=== PATIENT | female | born 1990 | race Caucasian/White ===

== ENCOUNTER 2016-08-12 10:26 | Inpatient (IN) | payer MEDICAID ==
[~2016-08-12] VITALS: Ht 157.5 cm; Wt 50.0 kg
[2016-08-12 08:20] VITALS: BP 108/66; PULSE 78; RESP 16
[~2016-08-12 10:26] MED LIST: IBUP-1542 PO; PREN1TAB13 PO; PREN1TAB31 PO
[2016-08-12] MEDS ORDERED: SOD CHLORIDE 0.9% 500 ML IV STA (10:33)
--- NOTE | 2016-08-12 10:57 | RADRPT ---
PROCEDURE: CT Head without contrast. CLINICAL INDICATION: Neurologic deficit TECHNIQUE: The study was performed utilizing a GE 64-slice multidetector CT scanner. Direct spiral axial CT images of the brain were obtained from the vertex to the skull base without contrast. Cor onal and sagittal reformat images are provided. The CTDI vol is 39.49 mGy and the DLP is 554.95 mGy -cm. The images were reviewed on a PACS workstation. COMPARISON: 02/05/2015 FINDINGS: The ventricles and cortical sulci are within normal limits. The dudley-white matter differentiation i s maintained. No intra or extra-axial fluid collection or mass effect or shift in the midline struc tures is seen. The visualized paranasal sinuses, mastoid air cells, orbits, and calvarium are unrem arkable. IMPRESSION: Unremarkable CT of the head without contrast. RPTAT: HPNM Physician Aaron Date Time Electronically viewed and signed by Physician Aaron on 08/12/2016 10:57 /
--- NOTE | 2016-08-12 11:00 | RADRPT ---
PROCEDURE: XR Chest. CLINICAL INDICATION: Chest pain TECHNIQUE: AP view of the chest was obtained. COMPARISON: None. FINDINGS: The cardiomediastinal silhouette is within normal limits. The lungs are clear. No pleural effusion or pneumothorax is evident. IMPRESSION: No evidence of active cardiopulmonary disease. RPTAT: EE .Fabio Lima MD, Date Time Electronically viewed and signed by .Fabio Lima MD, on 08/12/2016 11:00 .O/
[2016-08-12 11:05] LABS: ADD SCAN DIFF NO
[2016-08-12 11:07] LABS: BASOPHILS % 0.5 % (0.0-2.0); EOSINOPHILS # 0.1 10^3/ul (0.0-0.5); EOSINOPHILS % 1.6 % (0.0-7.0); HEMATOCRIT 38.5 % (37.0-47.0); LYMPHOCYTES # 2.1 10^3/ul (0.8-2.9); LYMPHOCYTES % 37.9 % (15.0-51.0); MEAN CORPUSCULAR HEMOGLOBIN 31.3 pg (29.0-33.0); MEAN CORPUSCULAR HGB CONC 33.8 g/dl (32.0-37.0); MEAN CORPUSCULAR VOLUME 92.5 fl (82.0-101.0); MEAN PLATELET VOLUME 10.5 fl (7.4-10.4); MONOCYTE # 0.3 10^3/ul (0.3-0.9); MONOCYTES % 5.3 % (0.0-11.0); NEUTROPHILS % 54.3 % (39.0-77.0); PLATELET COUNT 233 10^3/UL (140-415); RED BLOOD COUNT 4.16 10^6/ul (4.20-5.40); RED CELL DISTRIBUTION WIDTH 12.2 % (11.5-14.5); WHITE BLOOD COUNT 5.5 10^3/ul (4.8-10.8)
[2016-08-12 11:15] LABS: INR 0.96; PROTIME 12.8 Sec (12.2-14.2)
[2016-08-12 11:16] LABS: PARTIAL THROMBOPLASTIN TIME 29.1 Sec (25.0-35.0)
[2016-08-12 11:22] LABS: CHLORIDE 105 mmol/L (97-110); POTASSIUM 3.9 mmol/L (3.5-5.1); SODIUM 140 mmol/L (135-144)
[2016-08-12 11:24] LABS: CREATININE 0.71 mg/dl (0.44-1.00)
[2016-08-12 11:25] LABS: ANION GAP 14 (8-16); BLOOD UREA NITROGEN 14 mg/dl (7-20); CALCIUM 8.8 mg/dl (8.4-10.2); CARBON DIOXIDE 25 mmol/L (21-31); GLUCOSE 84 mg/dl (70-220)
[2016-08-12 11:37] LABS: TROPONIN-I < 0.010 ng/ml (0.00-0.12)
[2016-08-12 13:08] LABS: ADD UMIC NO; URINE BILIRUBIN (Dip) NEGATIVE (NEGATIVE); URINE BLOOD (Dip) NEGATIVE (NEGATIVE); URINE COLOR LT. YELLOW (YELLOW); URINE GLUCOSE (Dip) NEGATIVE (NEGATIVE); URINE KETONES (Dip) NEGATIVE (NEGATIVE); URINE LEUKOCYTE ESTERASE (Dip) NEGATIVE (NEGATIVE); URINE NITRITE (Dip) NEGATIVE (NEGATIVE); URINE TOTAL PROTEIN (Dip) NEGATIVE (NEGATIVE); URINE UROBILINOGEN (Dip) 0.2 E.U./dL (0.1-1.0)
[2016-08-12 13:30] LABS: BENZODIAZEPINES Negative (NEGATIVE)
[2016-08-12 13:32] LABS: BARBITURATES Negative (NEGATIVE); CANNABINOIDS Negative (NEGATIVE); COCAINE Negative (NEGATIVE); OPIATES Negative (NEGATIVE)
[2016-08-12] MEDS ORDERED: ASPIRIN 325 MG TAB PO ONE (14:30)
[2016-08-12] MEDS ORDERED: ONDANSETRON 4 MG INJ IV PRN ×2 (15:30→16:00)
[2016-08-12] MEDS ORDERED: ACETAMINOPHEN 325 MG TAB PO PRN ×2 (15:30→16:00)
[2016-08-12] MEDS ORDERED: MAGNESIUM HYDROXIDE 30ML CUP PO PRN (16:00)
[2016-08-12] MEDS ORDERED: HYDROCODONE/APAP (5/325) TAB PO PRN (16:00)
[2016-08-12] MEDS ORDERED: ZOLPIDEM 5 MG TAB PO PRN (16:00)
[2016-08-12] MEDS ORDERED: morphine 2 MG INJ IV PRN (16:00)
[2016-08-12] MEDS ORDERED: NACL 0.9% 3 ML SYG IV SCH (16:00)
[2016-08-12] MEDS ORDERED: BISACODYL (EC) 5 MG TAB PO PRN (16:00)
--- NOTE | 2016-08-12 16:03 | ERA ---
ER Documentation Chief Complaint Date/Time DATE: 08/12/16 TIME: 16:02 Chief Complaint BIB RA FOR EVAL OF LEFT SIDED ARM WEAKNESS LST WELL KNOWN 11PM 08/11 HPI This 26-year-old female presents for complete left arm paralysis with intermittent left arm pain. She also has complete lack of sensation to her left arm. States that the last time that her arm function properly that she knows of was probably 11 PM last night when she went to bed. She woke this morning to appear injured pain from her arm and noticed that she was completely unable to move it. Also noticed that it was completely numb except for the sensation of pain which returned a couple times afterward. She has no other motor deficits except for the left arm. ROS All systems reviewed and are negative except as per history of present illness. Medications Home Meds Discontinued Reported Medications Vit-Iron Fumarate-FA ( Vitamins Tablet) 1 Tab Tablet, 1 TAB PO DAILY, TAB 08/01/15 Vits #90-Iron Fum-FA ( Formula) 1 Each Tablet, 1 TAB PO DAILY, TAB 02/15/15 Discontinued Scripts Ibuprofen* (Ibuprofen*) 600 Mg Tab, 600 MG PO Q6, #20 TAB 0 Refills Prov:LEAH RUDD MD 08/10/15 Allergies Allergies: Coded Allergies: No Known Allergy (Unverified , 08/12/16) PMhx/Soc History of Surgery: Yes (BARTHOLINS CYST) Anesthesia Reaction: No Hx Neurological Disorder: No Hx Respiratory Disorders: No Hx Cardiac Disorders: No Hx Psychiatric Problems: No Hx Miscellaneous Medical Probl: No Hx Alcohol Use: No Hx Substance Use: No Hx Tobacco Use: No Smoking Status: Never smoker Physical Exam Vitals Vital Signs Date Time Temp Pulse Resp B/P Pulse Ox O2 Delivery O2 Flow Rate FiO2 08/12/16 11:04 Nasal Cannula 2 08/12/16 10:35 98.1 73 17 123/66 99 Physical Exam Const: [] No distress Head: Atraumatic Eyes: Normal Conjunctiva ENT: Normal External Ears, Nose and Mouth. Neck: Full range of motion..~ No meningismus. Resp: Clear to auscultation bilaterally Cardio: Regular rate and rhythm, no murmurs Abd: Soft, non tender, non distended. Normal bowel sounds Skin: No petechiae or rashes Back: No midline or flank tenderness Ext: No cyanosis, or edema, distal pulses intact all 4 extremities which are warm. Neur: Awake and alert and oriented 3, cranial nerves II through XII intact except for cranial nerve XI on the left side as patient is unable to use her trapezius muscle in any way. Right-sided finger to nose normal, 5 out of 5 strength all extremities except for her left arm which is complete paralysis both proximally and distally. She also has absolutely no sensation to touch pain or temperature to entire T of left arm originating at the angle of the neck going down half of her upper chest which she gained some sensation at the lower sternal level then has full sensation approximately 1 inch before below that. She also has no sensation to the posterior side in that same distribution from the midline of the back along the entire upper back to approximately the same dermatomal level as the front. She has no speech deficits or any other deficits. Her NIH deficits or total paralysis of the left arm with total sensory lack of the left arm and upper torso. NIH scale equals 4 however the deficits are quite significant. Psych: Normal Mood and Affect Result Diagram: 08/12/16 1043 08/12/16 1043 Results 24 hrs Laboratory Tests Test 08/12/16 10:43 08/12/16 12:56 Activated Partial Thromboplast Time 29.1Sec Anion Gap 14 Basophils # 0.010^3/ul Basophils % 0.5% Blood Urea Nitrogen 14mg/dl Calcium Level 8.8mg/dl Carbon Dioxide Level 25mmol/L Chloride Level 105mmol/L Creatinine 0.71mg/dl Eosinophils # 0.110^3/ul Eosinophils % 1.6% Glucose Level 84mg/dl Hematocrit 38.5% Hemoglobin 13.0g/dl Hemoglobin A1c 5.2% INR International Normalized Ratio 0.96 Lymphocytes # 2.110^3/ul Lymphocytes % 37.9% Mean Corpuscular Hemoglobin 31.3pg Mean Corpuscular Hemoglobin Concent 33.8g/dl Mean Corpuscular Volume 92.5fl Mean Platelet Volume 10.5fl Monocytes # 0.310^3/ul Monocytes % 5.3% Neutrophils # 3.010^3/ul Neutrophils % 54.3% Nucleated Red Blood Cells # 0.010^3/ul Nucleated Red Blood Cells % 0.0/100WBC Platelet Count 43959^3/UL Potassium Level 3.9mmol/L Prothrombin Time 12.8Sec Prothrombin Time Ratio 1.0 Red Blood Count 4.1610^6/ul Red Cell Distribution Width 12.2% Sodium Level 140mmol/L Troponin I < 0.010ng/ml White Blood Count 5.510^3/ul Urine Amphetamines Screen Negative Urine Barbiturates Negative Urine Benzodiazepines Screen Negative Urine Bilirubin NEGATIVE Urine Cannabinoids Negative Urine Clarity CLEAR Urine Cocaine Screen Negative Urine Color LT. YELLOW Urine Glucose NEGATIVE% Urine Hemoglobin NEGATIVE Urine Ketones NEGATIVE Urine Leukocyte Esterase NEGATIVE Urine Nitrite NEGATIVE Urine Opiates Screen Negative Urine Test NEGATIVE Urine Specific [place] >=1.030 Urine Total Protein NEGATIVE Urine Urobilinogen 0.2 E.U./dL Urine pH 5.5 Current Medications Medications (Trade) Dose Ordered Sig/Vivek Route PRN Reason Start Time Stop Time Status Last Admin Dose Admin Sodium Chloride (NS) 500 ml @ 500 mls/hr Q1H STAT IV 08/12/16 10:33 08/12/16 11:32 DC 08/12/16 11:10 Aspirin (Aspirin) 325 mg ONCE ONCE PO 08/12/16 14:30 08/12/16 14:31 DC Ondansetron HCl (Zofran Inj) 4 mg ER BRIDGE PRN IV NAUSEA AND/OR VOMITING 08/12/16 15:30 08/13/16 15:29 Acetaminophen (Tylenol Tab) 650 mg ER BRIDGE PRN PO MILD PAIN/FEVER 08/12/16 15:30 08/13/16 15:29 IV Flush (NS 3 ml) 3 ml PER PROTOCOL IV 08/12/16 16:00 Ondansetron HCl (Zofran Inj) 4 mg Q6H PRN IV NAUSEA AND/OR VOMITING 08/12/16 16:00 Acetaminophen (Tylenol Tab) 650 mg Q6H PRN PO PAIN LEVEL 1-3 OR FEVER 08/12/16 16:00 Acetaminophen/ Hydrocodone Bitart ([place] (5/325)) 1 tab Q6H PRN PO MODERATE PAIN LEVEL 4-6 08/12/16 16:00 Morphine Sulfate (morphine) 2 mg Q4H PRN IV SEVERE PAIN LEVEL 7-10 08/12/16 16:00 Magnesium Hydroxide (Milk Of Mag) 30 ml DAILY PRN PO CONSTIPATION 08/12/16 16:00 Bisacodyl (Dulcolax) 5 mg DAILY PRN PO CONSTIPATION 08/12/16 16:00 Zolpidem Tartrate (Ambien) 5 mg QHS PRN PO SLEEP 08/12/16 16:00 Famotidine (Pepcid) 20 mg Q12 PO 08/12/16 21:00 Procedures/MDM Very unusual case of total left arm paralysis with a strange distribution of sensory deficit as well. Possible CVA with last known well time 11 PM last night and therefore inability of TPA use, versus other transient symptoms such as multiple sclerosis, conversion disorder, TIA.. Patient has no signs of any kind of infection. No distress. After head CT returned with no hemorrhage she was given a 325 mg aspirin p.o. I ordered an MRI with and without contrast to try to quickly determine the etiology of this and more quickly address possible reversible causes. I spoke with Dr. Zambrano who will be admitting the patient to telemetry. EKG: Normal sinus rhythm, rate of 77, right axis deviation, no ST or T-wave changes concerning for acute ischemia. independent insurance adjuster interpretation: Normal sinus rhythm without arrhythmia CT brain interpretation: No acute process, I see no hemorrhage, no mass-effect no midline shift, no skull fracture or cranial abnormalities. Departure Diagnosis: Primary Impression: Acute weakness Additional Impressions: Paralysis of left upper extremity CVA (cerebral vascular accident) Condition: Abdirashid RODRIGUEZJONELLEREE DO Aug 12, 2016 16:03
--- NOTE | 2016-08-12 16:53 | HP ---
DATE OF ADMISSION: 08/12/2016 TIME OF EVALUATION: 1500 hours. REASON FOR ADMISSION: Left arm pain and weakness. CONSULTATIONS: Dr. Ori Gardiner, Neurology. HISTORY OF PRESENT ILLNESS: This is a 26-year-old female who denies any past medical history other than prior history of similar left arm pain and numbness, who came to the emergency room with sudden onset of left arm pain and resultant flaccid paralysis. The patient explained the event as follows. The patient was sleeping, and the left arm pain woke her up from sleep around 10:00 AM on 08/12/2016. The patient verbalized the pain as achy pain with tingling followed by complete sensory and motor loss of the left upper extremity. There was no associated twitching movements. There was no associated urinary incontinence. There was no associated headaches or loss of consciousness. She verbalized that she had left arm pain and numbness before that was transient and lasting only a few minutes. Upon review of the patient's medical records, the patient was admitted to [facility] Emergency Room with similar complaints on 12/07/2013. The patient verbalized that these events of left arm pain and numbness in the past have been occurring without any triggers. She denied any anxiety or stressors currently. The patient's spouse was at the bedside and was very supportive during the patient's examination and interview. The patient denied any fevers or chills, nausea, vomiting, abdominal pain, diarrhea, hematochezia, dysuria, or hematuria. The patient underwent a chest x-ray in the emergency room that was negative for any acute cardiopulmonary findings. The patient's brain CT scan was negative for any acute findings. The patient was given a single dose of aspirin and was given IV fluids in the emergency room. PAST MEDICAL HISTORY: Denies. PAST SURGICAL HISTORY: Tubal ligation. HOME MEDICATIONS: None. ALLERGIES: NO KNOWN DRUG ALLERGIES. SOCIAL HISTORY: The patient lives at home with her family. Denies any use of tobacco, alcohol, or illicit drug use. REVIEW OF SYSTEMS: A 12-point review of systems are negative other than what is mentioned in history of present illness. PHYSICAL EXAMINATION: VITAL SIGNS: Temperature 98.1, pulse rate 70, respiratory rate 17, blood pressure 123/66, oxygen saturation 99% on room air. GENERAL: This is a well-built, well-nourished female lying in bed in no apparent distress. HEENT: Head normocephalic and atraumatic. Eyes: Anicteric sclerae. Conjunctivae clear. ENT: Nasal septum is midline. Oral mucosa is moist. NECK: Supple. No JVD noticed. RESPIRATORY: Bilaterally clear to auscultation. No adventitious breath sounds heard. No use of accessory muscles of respiration. GASTROINTESTINAL: Abdomen soft, nontender, and nondistended. Bowel sounds positive in all 4 quadrants. GENITOURINARY: Deferred. EXTREMITIES: No cyanosis, no clubbing, no edema. Peripheral pulses palpable. NEUROLOGIC: Patient is awake, alert, and oriented. Full motor strength in the right upper extremity. Flaccid left upper extremity with lack of sensation on the left upper extremity. Pupils equal and reactive. No facial asymmetry. Bilateral lower extremity equal strength in both extremities. SKIN: No skin rashes. Normal skin turgor. LABORATORY AND DIAGNOSTIC DATA: WBC 5.5, hemoglobin 13.0, hematocrit 38.5, platelet count 233. Sodium 140, potassium 3.9, chloride 105, carbon dioxide 20 , anion gap 14, BUN 14, creatinine 0.71, glucose 84, calcium 8.8. Troponin less than 0.010. Hemoglobin A1c 5.2. Urine drug toxicology negative. Urinalysis: Urine nitrite negative, urine leukocyte esterase negative, urine glucose negative. PT 12.8, INR 0.96, PTT 29.1. Chest x-ray: No acute cardiopulmonary findings. Brain CT scan: Unremarkable CT scan of the head without contrast. IMPRESSION: This is a 26-year-old female with no significant past medical history who came to the emergency room with chief complaint of sudden onset of left upper extremity pain and weakness, who will be admitted here for further treatment and evaluation. ASSESSMENT AND PLAN: 1. Left upper extremity paraesthesias with flaccid paralysis. Etiology unclear. CT brain negative. A brain MRI and cervical spine MRI have been ordered. The patient was seen and evaluated by neurology. This could be most probably psychogenic in origin like a conversion disorder, unless otherwise proven. The patient will be provided with adequate pain control. The patient will be provided with psychological support. Plan. The patient will be admitted to inpatient telemetry floor. The patient will be started on a regular diet. The patient will be started on DVT prophylaxis and gastrointestinal prophylaxis. The patient will remain a FULL CODE. Activities will be with assist. The rest of the patient's management will be based on the clinical course, the results of diagnostic studies, and inputs from consultants. Based on the patient's clinical presentation, she most probably requires at least 1 midnight's stay for further management and evaluation of her clinical presentation. The case and management of this patient was fully discussed with Dr. Gomez. Approximately 45 minutes was spent on the history and physical of this patient. ERASTO GOMEZ MD, AM/FUNMI Conf#: [id number] DID#: [id number] MTDD
--- NOTE | 2016-08-12 18:08 | RADRPT ---
PROCEDURE: MR Brain with and without contrast. CLINICAL INDICATION: Left arm pain weakness TECHNIQUE: MRI brain was performed on a high field MRI system. Sequences included sagittal T1, ax ial T1, FLAIR, T2, GRE and diffusion weighted. After the administration of 10 cc Magnevist IV cont rast material, axial and coronal T1-weighted images with fat saturation were performed. COMPARISON: CT brain 08/12/2069 . FINDINGS: The ventricles and sulci are normal in size and configuration.. There is no midline shift. There a re no focal parenchymal abnormalities. There is no acute stroke on diffusion weighted images. Ther e is no mass lesion. There is no abnormal parenchymal or leptomeningeal enhancement after IV contra st. There is no intracranial hemorrhage or abnormal extra-axial fluid collection. Flow voids are n oted in the major intracranial arteries. There is normal signal intensity in the major dural venous sinuses. Visualized paranasal sinuses are clear. Foramen magnum is unremarkable. IMPRESSION: Negative examination. RPTAT: HMVK .Curt Drew MD, MD Date Time Electronically viewed and signed by .Curt Drew MD, on 08/12/2016 18:07 .K/
--- NOTE | 2016-08-12 18:12 | RADRPT ---
PROCEDURE: MRI Cervical spine with IV contrast CLINICAL INDICATION: Left arm numbness and weakness. TECHNIQUE: MRI examination of the cervical spine was performed on a high-field MRI system. Multip lanar sequences were obtained before and after the administration of 10 cc Magnevist intravenous con trast material. COMPARISON: None. FINDINGS: There is maintenance of height of the vertebral bodies.. Alignment is maintained. Marrow signal int ensity is within normal limits.. There is no disk bulge or protrusion. There is no spinal canal or neural foraminal stenosis. The caliber and signal intensity of the cervical cord is unremarkable. There is no abnormal enhancement after contrast material. The foramen magnum is unremarkable. Pre vertebral soft tissues are unremarkable. IMPRESSION: Normal examination. RPTAT: HMVK .Curt Drew MD, Date Time Electronically viewed and signed by .Curt Drew MD, MD on 08/12/2016 18:12 .K/
--- NOTE | 2016-08-12 18:14 | CONS ---
DATE OF ADMISSION: 08/12/2016 DATE OF CONSULTATION: 08/12/2016 TYPE OF CONSULTATION: Neurology. Thank you, Dr. Zambrano, for your kind referral for evaluation of left upper extremity weakness and numbness. HISTORY OF PRESENT ILLNESS: The patient is a 26-year-old lady with essentially no past medical history, who stated that for the last 6 years she may intermittently develop a short few minutes lasting sensation of weakness and numbness in the left upper extremity. Usually not associated with pain or not being provoked by any triggers. Episodes may occur every 2 months on a usual basis. At this time, the patient woke up this morning and had pain in the left shoulder and again noticed the weakness and numbness in the left arm, but this time this weakness and numbness did not go away within a few minutes, she promptly came to the emergency room. CAT scan of the head did not show any abnormality. She does not have any pain in the spine. No bowel or bladder problems. Previous episodes of left arm weakness and numbness usually were not accompanied by the pain. No other medical problems. No allergies. No home medications. No headaches. FAMILY HISTORY: Noncontributory. REVIEW OF SYSTEMS: She denies being under a great deal of stress. She had essentially a normal CBC, a basic metabolic panel. Normal PT, PTT. Normal urinalysis and negative tox screen. PHYSICAL EXAMINATION: VITAL SIGNS: Today 98.5 temperature, pulse 73, respirations 17, blood pressure 123/66. GENERAL: Not in acute distress, lying in bed, and then I asked her to sit on the edge of the bed. HEENT: Normocephalic, atraumatic head. NECK: No carotid bruits. No thyromegaly. LUNGS: Clear to auscultation bilaterally. CARDIAC: Normal cardiac rhythm and sounds. ABDOMEN: Soft, nontender. EXTREMITIES: No cyanosis, clubbing or edema. There is minimal tenderness to palpation of the left shoulder. NEUROLOGIC: She is awake, alert, and oriented x3 with fluent speech. Cranial nerve examination shows intact visual vanegas bilaterally. Pupils round, reactive to light from 4 to 2 mm bilaterally. Extraocular movements intact without nystagmus. Symmetrical face. Preserved facial strength and sensation. Tongue is in midline. Palate elevates symmetrically. Motor strength examination shows no movements in the flaccid left upper extremity, though when I moved it passively, the patient was able to slow down and hold her arm when I was checking arm elevation, so at least arm elevation is at least 3-/5. No other movements produced. Deep tendon reflexes 2+ throughout. Downgoing toes bilaterally. Sensory examination shows essentially normal perception of pain in the left upper extremity and upper part of the chest on the left side anteriorly, and posteriorly as well as below the shoulder, almost to the midline. Coordination is preserved on the right [id number] testing. No dysmetria or tremor. Gait was normal. IMPRESSION: Intermittent left upper extremity weakness and numbness usually very short lasting for the last 6 years every few months. At this time, the patient developed weakness, numbness and is still present. The patient gaves no effort with evaluation of strengths in the left upper extremity. She is at least on the arm elevation are stronger than she complains to be. Etiology of the weakness and numbness is not clear to me. I think it is reasonable to obtain MRI of the brain and cervical spine with contrast, though it seems that at least there is some amount of psychogenic exaggeration. Possibly patient has a conversion, but to state that I would want to make sure I am not missing any abnormality on the imaging studies. Thank you very much for this interesting consultation. Dictated By: MATI COLEMAN/FUNMI Conf#: [id number] DID#: [id number] MTDD
[2016-08-12 18:54] VITALS: TEMP 98.6
[2016-08-12 20:36] VITALS: PULSE 90
[2016-08-12] MEDS: FAMOTIDINE 20 MG TAB PO SCH (21:05)
[2016-08-12 23:40] VITALS: BP 110/64; PULSE 72; RESP 16
[2016-08-13] VITALS (8 sets, daily range): BP systolic 93–114; BP diastolic 52–58; PULSE 60–72; RESP 16–18; Ht 157.5 cm; Wt 50.0 kg
[2016-08-13 06:59] LABS: ADD SCAN DIFF NO
[2016-08-13 07:03] LABS: BASOPHILS % 0.4 % (0.0-2.0); EOSINOPHILS # 0.1 10^3/ul (0.0-0.5); EOSINOPHILS % 1.8 % (0.0-7.0); HEMATOCRIT 38.7 % (37.0-47.0); HEMOGLOBIN 12.6 g/dl (12.0-16.0); LYMPHOCYTES # 3.2 10^3/ul (0.8-2.9); LYMPHOCYTES % 42.4 % (15.0-51.0); MEAN CORPUSCULAR HEMOGLOBIN 30.8 pg (29.0-33.0); MEAN CORPUSCULAR HGB CONC 32.6 g/dl (32.0-37.0); MEAN CORPUSCULAR VOLUME 94.6 fl (82.0-101.0); MEAN PLATELET VOLUME 10.5 fl (7.4-10.4); MONOCYTE # 0.5 10^3/ul (0.3-0.9); MONOCYTES % 6.4 % (0.0-11.0); NEUTROPHIL # 3.7 10^3/ul (1.6-7.5); NEUTROPHILS % 48.9 % (39.0-77.0); PLATELET COUNT 246 10^3/UL (140-415); RED BLOOD COUNT 4.09 10^6/ul (4.20-5.40); RED CELL DISTRIBUTION WIDTH 12.1 % (11.5-14.5); WHITE BLOOD COUNT 7.6 10^3/ul (4.8-10.8)
[2016-08-13 07:24] LABS: ALBUMIN 3.7 g/dl (3.3-4.9)
[2016-08-13 07:25] LABS: PHOSPHORUS 4.3 mg/dl (2.5-4.9); POTASSIUM 4.7 mmol/L (3.5-5.1)
[2016-08-13 07:26] LABS: MAGNESIUM 1.9 mg/dl (1.7-2.5)
[2016-08-13 07:27] LABS: ALBUMIN/GLOBULIN RATIO 1.23; BILIRUBIN,INDIRECT 0.5 mg/dl (0-1.1); BILIRUBIN,TOTAL 0.5 mg/dl (0.2-1.3); CREATININE 0.8 mg/dl (0.44-1.00); TOTAL PROTEIN 6.7 g/dl (6.1-8.1)
[2016-08-13 07:28] LABS: CALCIUM 8.7 mg/dl (8.4-10.2)
[2016-08-13 08:40] LABS: CHOL/HDL RATIO 2.5 RATIO
[2016-08-13] MEDS: FAMOTIDINE 20 MG TAB PO SCH (10:29)
--- NOTE | 2016-08-13 15:12 | PDOCDIS ---
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 Follow up with your primary care provider in one week 2. Follow up with Dr. Ori Gardiner in 2 weeks SANDRA ROSEN Aug 13, 2016 15:12
--- NOTE | 2016-08-13 16:12 | DS ---
Date/Time of Note Date/Time of Note DATE: 08/13/16 TIME: 16:11 Discharge Summary Admission/Discharge Info Admit Date/Time Aug 12, 2016 at 15:21 Discharge Date/Time Final Diagnosis 1. Left upper extremity numbness/flaccidity Patient Condition: Stable Consults 1. Dr. Rehman [facility] Hospital Course This 26-year-old female with no reported past medical history who came to [facility] due to reports of left arm pain and numbness. Patient did report that she has had this similar symptom happened to her in the past. The patient did report she was sleeping and when she awoke from her sleep on August 12 is at 17 she resultantly had left arm facility and numbness. She did go to [facility] due to the after aforementioned issues. She did report that this happened to her in the past only happen on her left arm. She did have CT scan of the brain that was negative for any acute findings. She is also seen by neurologist. We did obtain MRI of the brain as well as cervical spine which had no acute pathology. Suspect her left upper extremity facility/numbness may have been psychogenic. Also possibility of nerve impingement. During the course of stay she did improve. She did have resolution of her left upper extremity numbness and facility. She was instructed to follow-up with neurologist should she have worsening of left upper extremity facility due to numbness. The plan of care was discussed with the patient and patient did verbalize her understanding. On the day of discharge patient was in stable condition Discussed but of care with Dr. Templeton Discharge process time is 40 minutes Disposition: Home Home Meds Discontinued Reported Medications Vit-Iron Fumarate-FA ( Vitamins Tablet) 1 Tab Tablet, 1 TAB PO DAILY, TAB 08/01/15 Vits #90-Iron Fum-FA ( Formula) 1 Each Tablet, 1 TAB PO DAILY, TAB 02/15/15 Discontinued Scripts Ibuprofen* (Ibuprofen*) 600 Mg Tab, 600 MG PO Q6, #20 TAB 0 Refills Prov:LEAH RUDD MD 08/10/15 Follow-up Plan CONDITION Patient Condition: Stable FOLLOW UP/APPOINTMENTS Appointments 1. Follow up with your primary care provider in one week Pending Labs Laboratory Tests Test 08/12/16 16:21 08/13/16 05:50 Free Thyroxine 1.11ng/dl (0.79-2.35) Thyroid Stimulating Hormone (TSH) 0.773MIU/L (0.465-4.680) Vitamin D 1,25-Dihydroxy 20.7ng/ml (30-100) Alanine Aminotransferase (ALT/SGPT) 25IU/L (13-69) Albumin 3.7g/dl (3.3-4.9) Albumin/Globulin Ratio 1.23 Alkaline Phosphatase 47IU/L (42-121) Anion Gap 15 (8-16) Aspartate Amino Transf (AST/SGOT) 21IU/L (15-46) Basophils # 0.010^3/ul (0.0-0.1) Basophils % 0.4% (0.0-2.0) Blood Urea Nitrogen 15mg/dl (7-20) Calcium Level 8.7mg/dl (8.4-10.2) Carbon Dioxide Level 28mmol/L (21-31) Chloride Level 104mmol/L (97-110) Cholesterol Level 155mg/dl (100-200) Cholesterol/HDL Ratio 2.5RATIO Creatinine 0.80mg/dl (0.44-1.00) Direct Bilirubin 0.00mg/dl (0.00-0.20) Eosinophils # 0.110^3/ul (0.0-0.5) Eosinophils % 1.8% (0.0-7.0) Globulin 3.00g/dl (1.3-3.2) Glucose Level 76mg/dl (70-220) HDL Cholesterol 62mg/dl (33-83) Hematocrit 38.7% (37.0-47.0) Hemoglobin 12.6g/dl (12.0-16.0) Indirect Bilirubin 0.5mg/dl (0-1.1) LDL Cholesterol, Calculated 80mg/dl Lymphocytes # 3.210^3/ul (0.8-2.9) Lymphocytes % 42.4% (15.0-51.0) Magnesium Level 1.9mg/dl (1.7-2.5) Mean Corpuscular Hemoglobin 30.8pg (29.0-33.0) Mean Corpuscular Hemoglobin Concent 32.6g/dl (32.0-37.0) Mean Corpuscular Volume 94.6fl (82.0-101.0) Mean Platelet Volume 10.5fl (7.4-10.4) Monocytes # 0.510^3/ul (0.3-0.9) Monocytes % 6.4% (0.0-11.0) Neutrophils # 3.710^3/ul (1.6-7.5) Neutrophils % 48.9% (39.0-77.0) Nucleated Red Blood Cells # 0.010^3/ul (0.0-0.0) Nucleated Red Blood Cells % 0.0/100WBC (0.0-0.0) Phosphorus Level 4.3mg/dl (2.5-4.9) Platelet Count 26850^3/UL (140-415) Potassium Level 4.7mmol/L (3.5-5.1) Red Blood Count 4.0910^6/ul (4.20-5.40) Red Cell Distribution Width 12.1% (11.5-14.5) Sodium Level 142mmol/L (135-144) Total Bilirubin 0.5mg/dl (0.2-1.3) Total Protein 6.7g/dl (6.1-8.1) Triglycerides Level 66mg/dl (0-149) White Blood Count 7.610^3/ul (4.8-10.8) SANDRA ROSEN Aug 13, 2016 16:12
== END 2016-08-13 18:35 | disposition home or self-care (01) | DRG 93 ==
LOC: E/R 10:26 → MS4 15:21
PROVIDERS: ADMIT Family Medicine; ATTEND Family Medicine
DX: R20.9 Unspecified disturbances of skin sensation (principal)
CPT/HCPCS: 36415; 70450; 70553; 71010; 72156; 80048; 80053; 80061; 80307; 81003; 82652; 83036; 83735; 84100; 84439; 84443; 84484; 84703; 85025; 85610; 85730; 93005; J7040

== ENCOUNTER 2016-12-24 07:58 | Emergency (ER) | payer MEDICAID ==
[~2016-12-24] VITALS: Ht 160 cm; Wt 49.0 kg
[2016-12-24 08:04] VITALS: Ht 160 cm; Wt 49.0 kg
[2016-12-24] MEDS ORDERED: DIPHENHYDRAMINE 50 MG INJ IV ONE (08:30)
[2016-12-24] MEDS ORDERED: METHYLPREDNISOLONE 125 MG INJ IV ONE (08:30)
[2016-12-24] MEDS ORDERED: SOD CHLORIDE 0.9% 1,000 ML IV ONE (08:30)
[2016-12-24] MEDS ORDERED: FAMOTIDINE 20 MG INJ IV ONE (08:30)
[2016-12-24] MEDS ORDERED: BEN25 PO (09:20)
[2016-12-24] MEDS ORDERED: PRED20TA PO (09:20)
--- NOTE | 2016-12-24 09:27 | ERD ---
ER Documentation Chief Complaint Date/Time DATE: 12/24/16 TIME: 09:25 Chief Complaint Pt with generalized body rash since last night, worst today. HPI This is a 26-year-old female that presents to the ER with a rash that started last night. Patient states that rash is very itchy. This morning patient states that she noticed the rash was extending throughout her body. She also noticed that her right eye was beginning to get swollen. Patient denies any swollen lips, swollen tongue or difficulty in breathing. Patient denies any fevers or chills. Her last normal menstrual period was December 04. ROS 12 point review of system was done all negative except per HPI Medications Home Meds Active Scripts Diphenhydramine Hcl* (Benadryl*) 25 Mg Cap, 25 MG PO Q6, #30 CAP Prov:FRANSISCA DAWSON 12/24/16 Prednisone* (Prednisone*) 20 Mg Tab, 40 MG PO DAILY for 4 Days, TAB Prov:DIANNE DAWSONNA C 12/24/16 Allergies Allergies: Coded Allergies: No Known Allergy (Unverified , 08/12/16) PMhx/Soc History of Surgery: No Anesthesia Reaction: No Hx Neurological Disorder: No Hx Respiratory Disorders: No Hx Cardiac Disorders: No Hx Psychiatric Problems: No Hx Miscellaneous Medical Probl: No Hx Alcohol Use: No Hx Substance Use: No Hx Tobacco Use: No Physical Exam Vitals Vital Signs Date Time Temp Pulse Resp B/P Pulse Ox O2 Delivery O2 Flow Rate FiO2 12/24/16 08:04 97.5 74 18 132/60 96 Physical Exam GENERAL: The patient is well developed and appropriate for usual state of health , in no apparent distress. HEENT: Atraumatic. Conjunctivae are pink. Pupils equal, round, and reactive to light. Extraocular muscles are grossly intact. patient has slight swelling of the right eye. no lip swelling, no tongue swelling. CHEST: Clear to auscultation bilaterally. There are no rales, wheezes or rhonchi. HEART: Regular rate and rhythm. No murmurs, clicks, rubs or gallops. NEURO: Alert and oriented. SKIN: macular raised rash through out body Results 24 hrs Current Medications Medications (Trade) Dose Ordered Sig/Vivek Route PRN Reason Start Time Stop Time Status Last Admin Dose Admin Methylprednisolone Sodium Succinate (Solu-Medrol) 125 mg ONCE ONCE IV 12/24/16 08:30 12/24/16 08:31 DC 12/24/16 08:38 Diphenhydramine HCl (Benadryl) 25 mg ONCE ONCE IV 12/24/16 08:30 12/24/16 08:31 DC 12/24/16 08:38 Famotidine 20 mg 20 mg ONCE ONCE IV 12/24/16 08:30 12/24/16 08:31 DC 12/24/16 08:38 Sodium Chloride (NS) 1,000 ml @ 1,000 mls/hr Q1H ONCE IV 12/24/16 08:30 12/24/16 09:29 12/24/16 08:38 Procedures/MDM Differential Diagnosis: dermatitis, allergic urticaria, viral exanthem, insect bite, fungal infection ,viral exanthem, hand foot mouth disease, , impetigo, cellulitis, abscess, danilo rosita syndrome, meningocemia. This is a 26-year- old female presents to the ER with her bodies is likely an allergic reaction. Patient did have some slight swelling of her right eye, because of this patient was treated with IV Solu-Medrol, Benadryl, famotidine. Patient did not have any lip swelling, tongue swelling or any difficulty in breathing. He was not hypoxic or in any respiratory distress throughout the ER course. Upon reexamination patient's rash was improving and she felt significantly better stating she was not as itchy. Patient will be sent home with prednisone and Benadryl. Suspicion for severe allergic reaction is low at this time. Patient is afebrile and extremely well-appearing. Patient is to follow-up with her primary care doctor within 1-2 days or return to ER sooner if symptoms worsen. My medical decision making shared with the patient she understands and agrees with plan. Departure Diagnosis: Primary Impression: Rash Condition: Stable Patient Instructions: Self-Care for Skin Rashes Additional Instructions: Call your primary care doctor TOMORROW for an appointment during the next 1-2 days.See the doctor sooner or return here if your condition worsens before your appointment time. FRANSISCA DAWSON Dec 24, 2016 09:27
[2016-12-24 09:51] VITALS: BP 103/60; PULSE 64; RESP 20; TEMP 98.3
== END 2016-12-24 09:54 | disposition home or self-care (01) ==
LOC: FTE 07:58
DX: R21 Rash and other nonspecific skin eruption (principal)
CPT/HCPCS: 96374; 96375; J1200; J2930; J7030; Z7502; Z7610

== ENCOUNTER 2017-06-13 19:20 | Emergency (ER) | END 2017-06-14 00:40 | disposition home or self-care (01) ==

== ENCOUNTER 2019-01-10 22:07 | Emergency (ER) | payer SELFPAY ==
[~2019-01-10] VITALS: Ht 165.1 cm; Wt 49.6 kg
[~2019-01-10 22:07] MED LIST changes: +BEN25 PO; -IBUP-1542 PO; +ONDA4TAB14 PO; +PRED20TA PO; -PREN1TAB13 PO; -PREN1TAB31 PO
[2019-01-10 22:09] VITALS: Ht 165.1 cm; Wt 49.6 kg
[2019-01-11] MEDS ORDERED: LORAZEPAM 2 MG INJ IV STA (00:05)
[2019-01-11] MEDS ORDERED: SOD CHLORIDE 0.9% 1,000 ML IV STA (00:05)
--- NOTE | 2019-01-11 00:38 | ERD ---
ER Documentation Chief Complaint Chief Complaint WALKED INTO ED, STATES SHE HAS BEEN HAVING SEIZURES TODAY HPI This is a 28-year-old female who presents to the emergency room for evaluation of seizures. For several months if not longer the patient has been having daily seizures. Patient is taking Keppra 500 mg 2 in the morning and 3 in the evening. She is following with a neurologist. She has had CAT scans, MRIs, EEGs. They do not have an answer as to why she is having seizures. Patient is being referred to [facility] for further specialty care. Today the patient had 3 seizures. These lasted less than 10 to 20 seconds and the patient had returned to baseline in between. Her is very concerned because of the frequency of the seizures and they seem to be more intense this time is going on. Patient denies any falls or injuries, no headache. She is feeling generally weak. ROS All systems reviewed and are negative except as per history of present illness. Medications Home Meds Active Scripts Ondansetron (Ondansetron Odt) 4 Mg Tab.rapdis, 4 MG PO Q6H PRN for NAUSEA AND/OR VOMITING, #10 TAB Prov:LESTER UNGER PA-C 06/14/17 Diphenhydramine Hcl* (Benadryl*) 25 Mg Cap, 25 MG PO Q6, #30 CAP Prov:FRANSISCA DAWSON 12/24/16 Prednisone* (Prednisone*) 20 Mg Tab, 40 MG PO DAILY for 4 Days, TAB Prov:FRANSISCA DAWSON 12/24/16 Allergies Allergies: Coded Allergies: No Known Allergy (Unverified , 08/12/16) PMhx/Soc History of Surgery: No Anesthesia Reaction: No Hx Neurological Disorder: No Hx Respiratory Disorders: No Hx Cardiac Disorders: No Hx Psychiatric Problems: No Hx Miscellaneous Medical Probl: No Hx Alcohol Use: No Hx Substance Use: No Hx Tobacco Use: No FmHx Family History: No diabetes Physical Exam Vitals Vital Signs Date Temp Pulse Resp B/P (MAP) Pulse Ox O2 O2 Flow FiO2 Time Delivery Rate 01/11/19 98.6 68 15 136/72 100 00:01 (93) 01/10/19 98.8 83 16 143/64 98 22:09 (90) Physical Exam General: Well developed, well nourished, no acute distress Head: Normocephalic, atraumatic. Eyes: Pupils equally reactive, EOM intact ENT: Moist mucous membranes Neck: Supple, no lymphadenopathy Respiratory: Lungs clear bilaterally, no distress Cardiovascular: RRR, no murmurs, rubs, or gallops Abdominal: Soft, non-tender, non-distended, no peritoneal signs : Deferred MSK: No edema, no unilateral swelling, 5/5 strength Neurologic: Alert and oriented, moving all extremities, normal speech, no focal weakness, no cerebellar signs Skin: No rash Psych: Normal mood Result Diagram: 01/11/19 0019 01/11/19 0019 Results 24 hrs Laboratory Tests Test 01/11/19 00:19 White Blood Count 7.1 10^3/ul Red Blood Count 4.13 10^6/ul Hemoglobin 13.0 g/dl Hematocrit 37.8 % Mean Corpuscular Volume 91.5 fl Mean Corpuscular Hemoglobin 31.5 pg Mean Corpuscular Hemoglobin Concent 34.4 g/dl Red Cell Distribution Width 11.9 % Platelet Count 269 10^3/UL Mean Platelet Volume 10.1 fl Immature Granulocytes % 0.100 % Neutrophils % 50.2 % Lymphocytes % 39.3 % Monocytes % 6.3 % Eosinophils % 3.5 % Basophils % 0.6 % Nucleated Red Blood Cells % 0.0 /100WBC Immature Granulocytes # 0.010 10^3/ul Neutrophils # 3.6 10^3/ul Lymphocytes # 2.8 10^3/ul Monocytes # 0.5 10^3/ul Eosinophils # 0.3 10^3/ul Basophils # 0.0 10^3/ul Nucleated Red Blood Cells # 0.0 10^3/ul Sodium Level 141 mmol/L Potassium Level 3.9 mmol/L Chloride Level 105 mmol/L Carbon Dioxide Level 27 mmol/L Anion Gap 9 Blood Urea Nitrogen 16 mg/dl Creatinine 0.78 mg/dl Est Glomerular Filtrat Rate mL/min > 60 mL/min Glucose Level 92 mg/dl Calcium Level 9.3 mg/dl Serum HCG, Qualitative NEGATIVE Current Medications Medications Dose Sig/Vivek Start Time Status Last (Trade) Ordered Route PRN Stop Time Admin Dose Reason Admin Sodium 1,000 ml @ Q1H STAT 01/11/19 DC 01/11/19 Chloride 1,000 mls/hr IV 00:05 00:48 01/11/19 01:04 Lorazepam 1 mg ONCE STAT 01/11/19 DC 01/11/19 (Ativan) IV 00:05 01:02 01/11/19 00:10 Procedures/MDM LAB INTERPRETATION: I reviewed the laboratory testing and it shows [no evidence of acute process] MEDICAL DECISION MAKING: The patient presents with persistent seizures that she has been dealing with for several months. She has seen a neurologist she has had extensive central nervous system testing including MRIs and EEGs. A video of the patient's seizures seem very atypical and likely consistent with pseudoseizures. The patient is being referred to specialty care center for further intervention. This time the patient has returned to baseline. None of the description seems to fit diagnostic criteria for status epilepticus. The family and patient are asking for answers for why she is having the seizures. They were explained that in the emergency room setting, given the chronicity of the symptoms and the fact that she has returned to baseline does not meet diagnostic criteria for status epilepticus it is unlikely that we will have a specific answer for her symptomatology at this time. The patient seems to be optimized on Keppra. She has appropriate outpatient follow-up and will see a neurologist within the next 5 days. I will check basic chemistry and blood work to rule out electrolyte disturbance or obvious etiology. I do not believe that further testing including CT imaging would be necessary given prolonged and extensive work-up. Seizure precautions will be initiated. Dose of Ativan to be provided. ER COURSE: * Seizure precautions initiated. * Ativan provided. Laboratory testing unremarkable. Patient remains at baseline. At this point I do not believe hospitalization is necessary and will benefit the patient. She has prompt follow-up within the next 7 days with a new neurologist. * Given strong suspicion for possible pseudoseizures and the fact that the patient does not have status epilepticus I believe the patient is safe for discharge. CONSULTATION: [None] DISPOSITION PLAN: The patient does not have an identifiable emergent medical condition that warrants inpatient hospitalization at this time. The patient is deemed safe for discharge with outpatient follow-up. We discussed follow up with the patient's primary care doctor within 24 to 48 hours as needed. We also discussed return to the emergency room for worsening symptoms or worsening condition. Outpatient referral: Neurology Discharge Medications: Continue Keppra Departure Diagnosis: Primary Impression: Seizure disorder Additional Impression: Pseudoseizure Condition: Stable BRANDIN TANNER MD Jan 11, 2019 00:38
[2019-01-11 01:30] VITALS: BP 115/87; PULSE 73; RESP 17
== END 2019-01-11 01:33 | disposition home or self-care (01) ==
LOC: E/R 22:07
DX: G40.909 Epilepsy, unspecified, not intractable, without status epilepticus (principal)
CPT/HCPCS: 80048; 84703; 85025; J2060; J7030; 36415; 96374